=== PATIENT | male | born 1940 | race Caucasian/White ===

== ENCOUNTER 2017-07-20 06:27 | Inpatient (IN) | payer MEDICARE, OTHER ==
[~2017-07-20] VITALS: Ht 190.5 cm; Wt 104.3 kg
[2017-07-20] VITALS (7 sets, daily range): BP systolic 92–119; BP diastolic 57–68
[2017-07-20 07:19] LABS: Basophils # (auto) 0 uL; Basophils % (auto) 0.3 % (0.0-2.0); Eosinophils # (auto) 0 uL; Eosinophils % (auto) 0.2 % (0.0-7.0); Monocytes # (auto) 0.8 uL
[2017-07-20 07:20] LABS: Hematocrit 21.9 % (41.0-53.0); Lymphocytes # (auto) 1.2 uL; Lymphocytes % (auto) 12.1 % (10.0-50.0); Mean Corpuscular Hemoglobin 25.5 pg (28.0-32.0); Mean Corpuscular Volume 79.6 fL (80.0-100.0); Monocytes % (auto) 8.3 % (0.0-12.0); Neutrophils # (auto) 7.6 uL; Neutrophils % (auto) 79.1 % (37.0-80.0); Platelet Count (auto) 359 10^3/uL (140-450); Red Blood Cells 2.75 10^6/uL (4.5-5.90); Red Cell Distribution Width 19.5 % (11.8-14.3); White Blood Cell 9.6 10^3/uL (4.4-10.8)
[2017-07-20 07:36] LABS: Lactic Acid w/Reflex 8.2 mmol/L (0.4-2.0)
[2017-07-20 07:40] LABS: Albumin 2.6 g/dL (3.4-5.0); BUN/Creatinine Ratio 32.1; Bilirubin, Total 1.3 mg/dL (0.2-1.0); Calcium 9.1 mg/dL (8.5-10.1); Magnesium 2.3 mg/dL (1.6-2.6); Potassium 3.7 mmol/L (3.5-5.1); Total Protein 6.7 g/dL (6.4-8.2)
[2017-07-20] MEDS ORDERED: SODIUM CHLORIDE 0.9% 1,000 ML IV SCH (09:34)
[2017-07-20] MEDS ORDERED: PROMETHAZINE HCL 25 MG/ML 1ML IV PRN (09:45)
[2017-07-20] MEDS ORDERED: MORPHINE SULFATE 8mg/ml INJ SDV IV PRN (09:45)
[2017-07-20] MEDS ORDERED: MORPHINE SULF(PF) 0.5MG/ML 10ML VIAL IV PRN (09:45)
[2017-07-20] MEDS ORDERED: DEXTROSE (50%) 50ML SYRG IV PRN (09:45)
[2017-07-20] MEDS ORDERED: ACETAMINOPHEN 500 MG TAB PO PRN (09:45)
[2017-07-20] MEDS ORDERED: PANTOPRAZOLE 40 MG/10 ML VIAL IV ONE (09:45)
[2017-07-20] MEDS ORDERED: HYDROcodone-ACET 5/325MG TAB PO PRN (09:45)
[2017-07-20] MEDS ORDERED: NITROGLYCERIN 0.4 MG SL TAB SL PRN (09:45)
[2017-07-20] MEDS ORDERED: PANTOPRAZOLE 40 MG TAB PO SCH (10:00)
[2017-07-20 10:14] LABS: CRP High Sensitivity 3.98 mg/dL (< 0.3)
[2017-07-20] MEDS ORDERED: cefTRIAXone 1GM/10ml IVPUSH 10 ML IV ONE (10:30)
[2017-07-20 10:35] LABS: INR 1.47 (0.9-1.15); Partial Thromboplastin Time 24.9 sec (23.78-33.04); Prothrombin Time 15.4 sec (9.27-12.13)
[2017-07-20] MEDS: ACCU-CHEK COMFORT CURVE STRIP VI SCH ×3 (11:30→22:00)
[2017-07-20] MEDS: InsuLIN REG 1unit/0.01ml Soln (100units/ml) SC SCH ×3 (11:59→22:00)
[2017-07-20] MEDS: metroNIDAZOLE 500MG/100ML 100 ML IV SCH ×2 (12:49→18:38)
[2017-07-20 15:07] LABS: Hematocrit 27.8 % (41.0-53.0); Hemoglobin 9.3 g/dL (13.5-17.5)
[2017-07-20] MEDS: LORazepam 0.5 MG TAB PO PRN (16:22)
[2017-07-20 16:33] LABS: Urine Bacteria MANY /hpf (None Seen); Urine Blood 1+ /uL (Negative); Urine Mucus FEW (None Seen); Urine Specific Gravity 1.017 (1.001-1.035); Urine WBC 1038 /hpf (0 - 3); Urine WBC Clumps PRESENT /hpf (None Seen)
[2017-07-20 20:42] LABS: Hematocrit 26.8 % (41.0-53.0)
[2017-07-20] MEDS: PANTOPRAZOLE 40 MG TAB PO SCH (22:00)
[2017-07-21] MEDS: metroNIDAZOLE 500MG/100ML 100 ML IV SCH ×5 (00:15→23:49)
[2017-07-21 01:01] LABS: Hemoglobin 8.7 g/dL (13.5-17.5)
[2017-07-21] MEDS: LORazepam 0.5 MG TAB PO PRN ×3 (04:00→23:49)
[2017-07-21 05:42] LABS: Basophils # (auto) 0 uL; Eosinophils # (auto) 0 uL; Eosinophils % (auto) 0.1 % (0.0-7.0); Hemoglobin 8.9 g/dL (13.5-17.5); Neutrophils % (auto) 81.4 % (37.0-80.0)
[2017-07-21 05:43] LABS: Basophils % (auto) 0.2 % (0.0-2.0); Hematocrit 26.3 % (41.0-53.0); Lymphocytes # (auto) 0.9 uL; Lymphocytes % (auto) 8.6 % (10.0-50.0); Mean Corpuscular Hgb Conc. 33.7 g/dL (32.0-36.0); Monocytes % (auto) 9.7 % (0.0-12.0); Neutrophils # (auto) 8.2 uL; Nucleated Red Blood Cells % 0.1 %; Platelet Count (auto) 315 10^3/uL (140-450); Red Blood Cells 3.29 10^6/uL (4.5-5.90)
[2017-07-21 05:46] LABS: Red Cell Distribution Width 20.5 % (11.8-14.3)
[2017-07-21 06:21] LABS: Albumin 2.7 g/dL (3.4-5.0); BUN/Creatinine Ratio 36.8; Bilirubin, Total 2.5 mg/dL (0.2-1.0); Calcium 8.9 mg/dL (8.5-10.1); Potassium 3.6 mmol/L (3.5-5.1); Total Protein 6.7 g/dL (6.4-8.2)
[2017-07-21] MEDS: InsuLIN REG 1unit/0.01ml Soln (100units/ml) SC SCH ×4 (07:00→21:33)
[2017-07-21] MEDS: ACCU-CHEK COMFORT CURVE STRIP VI SCH ×4 (07:19→21:30)
[2017-07-21] MEDS ORDERED: LIDOCAINE VISCOUS 2% 15ML UD ONE (08:22)
[2017-07-21] MEDS ORDERED: SODIUM CHLORIDE LOCK 10 ML ONE (08:22)
[2017-07-21] MEDS ORDERED: MIDAZOLAM HCL 5 MG/ML-1ML VIAL ONE (08:22)
[2017-07-21] MEDS ORDERED: fentaNYL CITRATE 100 MCG/2 ML VL ONE (08:22)
[2017-07-21] MEDS ORDERED: diphenhdrAMINE HCL 50 MG/1 ML VL ONE (08:23)
[2017-07-21] MEDS: PANTOPRAZOLE 40 MG TAB PO SCH ×2 (09:20→21:30)
[2017-07-21] MEDS: cefTRIAXone 1GM/10ml IVPUSH 10 ML IV SCH (09:20)
[2017-07-21 19:45] VITALS: BP 105/67
[2017-07-21] MEDS: TEMAZEPAM 15 MG CAP PO PRN (21:30)
[2017-07-21 22:00] VITALS: BP 107/72
[2017-07-22] VITALS (7 sets, daily range): BP systolic 103–120; BP diastolic 62–68
[2017-07-22] MEDS: ACCU-CHEK COMFORT CURVE STRIP VI SCH ×4 (06:27→21:34)
[2017-07-22] MEDS: metroNIDAZOLE 500MG/100ML 100 ML IV SCH ×3 (06:27→18:19)
[2017-07-22] MEDS: InsuLIN REG 1unit/0.01ml Soln (100units/ml) SC SCH ×4 (06:29→21:34)
[2017-07-22 07:50] LABS: Basophils # (auto) 0 uL; Basophils % (auto) 0.3 % (0.0-2.0); Eosinophils # (auto) 0 uL; Hematocrit 27.9 % (41.0-53.0); Lymphocytes # (auto) 0.9 uL; Lymphocytes % (auto) 6.9 % (10.0-50.0); Mean Corpuscular Hemoglobin 26.1 pg (28.0-32.0); Mean Corpuscular Hgb Conc. 32.4 g/dL (32.0-36.0); Mean Corpuscular Volume 80.5 fL (80.0-100.0); Monocytes # (auto) 1.3 uL; Monocytes % (auto) 10.5 % (0.0-12.0); Neutrophils # (auto) 10.3 uL; Neutrophils % (auto) 82.3 % (37.0-80.0); Nucleated Red Blood Cells % 0.3 %; Platelet Count (auto) 303 10^3/uL (140-450); Red Blood Cells 3.47 10^6/uL (4.5-5.90); White Blood Cell 12.5 10^3/uL (4.4-10.8)
[2017-07-22 07:54] LABS: Red Cell Distribution Width 20.3 % (11.8-14.3)
[2017-07-22 08:19] LABS: Albumin 2.7 g/dL (3.4-5.0); BUN/Creatinine Ratio 37.7; Bilirubin, Total 3.3 mg/dL (0.2-1.0); Potassium 3.8 mmol/L (3.5-5.1); Total Protein 6.7 g/dL (6.4-8.2)
[2017-07-22] MEDS: PANTOPRAZOLE 40 MG TAB PO SCH ×2 (09:40→21:34)
[2017-07-22] MEDS: cefTRIAXone 1GM/10ml IVPUSH 10 ML IV SCH (09:40)
[2017-07-22 14:08] LABS: Albumin 2.6 g/dL (3.4-5.0); Bilirubin, Total 3.6 mg/dL (0.2-1.0); Calcium 8.6 mg/dL (8.5-10.1); Potassium 4.1 mmol/L (3.5-5.1); Total Protein 6.6 g/dL (6.4-8.2)
[2017-07-22] MEDS: LORazepam 0.5 MG TAB PO PRN (18:19)
[2017-07-22] MEDS: TEMAZEPAM 15 MG CAP PO PRN (21:34)
[2017-07-23] MEDS: LORazepam 0.5 MG TAB PO PRN (02:48)
[2017-07-23] MEDS: ACCU-CHEK COMFORT CURVE STRIP VI SCH ×3 (06:10→16:58)
[2017-07-23] MEDS: metroNIDAZOLE 500MG/100ML 100 ML IV SCH ×4 (06:10→17:26)
[2017-07-23] MEDS: InsuLIN REG 1unit/0.01ml Soln (100units/ml) SC SCH ×3 (06:12→16:58)
[2017-07-23 08:08] LABS: Basophils # (auto) 0 uL; Eosinophils # (auto) 0 uL; Hemoglobin 8.7 g/dL (13.5-17.5)
[2017-07-23 08:12] LABS: Basophils % (auto) 0.4 % (0.0-2.0); Eosinophils % (auto) 0.2 % (0.0-7.0); Hematocrit 26.8 % (41.0-53.0); Lymphocytes % (auto) 10.7 % (10.0-50.0); Mean Corpuscular Hemoglobin 26.5 pg (28.0-32.0); Mean Corpuscular Hgb Conc. 32.6 g/dL (32.0-36.0); Mean Corpuscular Volume 81.2 fL (80.0-100.0); Monocytes # (auto) 0.9 uL; Neutrophils # (auto) 7.4 uL; Neutrophils % (auto) 78.7 % (37.0-80.0); Nucleated Red Blood Cells % 0.1 %; Platelet Count (auto) 249 10^3/uL (140-450); Red Blood Cells 3.29 10^6/uL (4.5-5.90); Red Cell Distribution Width 20.9 % (11.8-14.3); White Blood Cell 9.4 10^3/uL (4.4-10.8)
[2017-07-23 08:42] LABS: Albumin 2.4 g/dL (3.4-5.0); BUN/Creatinine Ratio 37.5; Calcium 8.7 mg/dL (8.5-10.1); Magnesium 2.6 mg/dL (1.6-2.6); Potassium 3.6 mmol/L (3.5-5.1); Total Protein 6.3 g/dL (6.4-8.2)
[2017-07-23 09:00] VITALS: BP 104/70
[2017-07-23] MEDS: cefTRIAXone 1GM/10ml IVPUSH 10 ML IV SCH (10:19)
[2017-07-23] MEDS: PANTOPRAZOLE 40 MG TAB PO SCH (10:19)
[2017-07-23 13:00] VITALS: BP 102/66
[2017-07-23] MEDS ORDERED: POTASSIUM CHL 20 Meq TABLET PO ONE (13:45)
[2017-07-23] MEDS ORDERED: CARVEDILOL 3.125 MG TAB PO ONE (13:45)
[2017-07-23] MEDS ORDERED: FUROSEMIDE 20 MG TAB PO ONE (13:45)
[2017-07-23 15:44] VITALS: BP 102/66
[2017-07-23 17:00] VITALS: BP 101/54
== END 2017-07-23 18:20 | disposition hospice, home (50) | DRG 377 ==
LOC: EDBD 06:27 → ER 06:33 → TELE 06:34 → TELE-CENTR 07-21 19:35
PROVIDERS: ADMIT Internal Medicine; ATTEND Internal Medicine
PROC: 30233N1 Transfusion of Nonautologous Red Blood Cells into Peripheral Vein, Percutaneous Approach (ICD-10-PCS; principal; 2017-07-20)
PROC: 0DB98ZX Excision of Duodenum, Via Natural or Artificial Opening Endoscopic, Diagnostic (ICD-10-PCS; 2017-07-21)
PROC: 0DB68ZX Excision of Stomach, Via Natural or Artificial Opening Endoscopic, Diagnostic (ICD-10-PCS; 2017-07-21)
DX: K26.4 Chronic or unspecified duodenal ulcer with hemorrhage (principal); I50.23 Acute on chronic systolic (congestive) heart failure; D62 Acute posthemorrhagic anemia; N17.9 Acute kidney failure, unspecified; N13.30 Unspecified hydronephrosis; N39.0 Urinary tract infection, site not specified; I24.9 Acute ischemic heart disease, unspecified; K29.71 Gastritis, unspecified, with bleeding; K57.31 Diverticulosis of large intestine without perforation or abscess with bleeding; K29.81 Duodenitis with bleeding; E78.5 Hyperlipidemia, unspecified; E11.9 Type 2 diabetes mellitus without complications; I11.0 Hypertensive heart disease with heart failure; I25.10 Atherosclerotic heart disease of native coronary artery without angina pectoris; I25.5 Ischemic cardiomyopathy; I35.0 Nonrheumatic aortic (valve) stenosis; J44.9 Chronic obstructive pulmonary disease, unspecified; N32.0 Bladder-neck obstruction; N32.3 Diverticulum of bladder; R29.6 Repeated falls; R32 Unspecified urinary incontinence; Z85.820 Personal history of malignant melanoma of skin; Z87.11 Personal history of peptic ulcer disease; Z87.891 Personal history of nicotine dependence
CPT/HCPCS: 36415; 36430; 71045; 74176; 76700; 76775; 80053; 80061; 81001; 82150; 82378; 82550; 82962; 83036; 83605; 83690; 83735; 83880; 84443; 84484; 85014; 85018; 85025; 85045; 85610; 85652; 85730; 86141; 86850; 86900; 86901; 86920; 87040; 93005; 93306; 96361; 96374; 96375; 99291; C9113; J1815; J2250; J3490